=== PATIENT | female | born 2000 | race Caucasian/White ===

== ENCOUNTER 2021-09-02 16:33 | Emergency (ER) | payer OTHER ==
[~2021-09-02 16:33] MED LIST: BACTROBAN OINT22 GM EXT; IBUPROFEN600 MG PO; KEFLEX CAP 500500 MG PO
== END 2021-09-02 17:00 | disposition left against medical advice (07) ==
LOC: ER1 16:33
DX: Z53.21 Procedure and treatment not carried out due to patient leaving prior to being seen by health care provider (principal)